=== PATIENT | female | born 2000 | race Caucasian/White ===

== ENCOUNTER 2022-11-30 23:15 | Emergency (ER) | payer MEDICAID ==
[~2022-11-30] VITALS: Ht 157.5 cm; Wt 80.1 kg
[2022-11-30 23:20] VITALS: BP 145/91; O2SAT 99
[2022-11-30 23:44] LABS: BASOPHILS % 0.7 % (0.0-2.0); EOSINOPHILS % 0.8 % (0.0-5.0); HEMATOCRIT. 39.8 % (36.0-48.0); HEMOGLOBIN. 13.2 g/dL (12.0-16.0); MEAN CORPUSCULAR HEMOGLOBIN 27.2 pg (28.0-32.0); MEAN PLATELET VOLUME 8.4 fl (7.4-10.4); MONOCYTES % 8.9 % (2.0-8.0); NEUTROPHILS % 61.6 % (40.0-76.0); PLATELET 359 x1000/uL (130-400); RED BLOOD CELL COUNT 4.85 mill/uL (4.2-5.4)
[2022-11-30 23:58] LABS: CHLORIDE 104 mEq/L (98-107)
[2022-12-01 04:25] VITALS: PULSE 79; RESP 14; TEMP 98.9
== END 2022-12-01 04:26 | disposition home or self-care (01) ==
LOC: ER 23:15
DX: K62.5 Hemorrhage of anus and rectum (principal); E11.9 Type 2 diabetes mellitus without complications
CPT/HCPCS: 36415; 80053; 85025; 99283

== ENCOUNTER 2023-12-26 21:31 | Emergency (ER) | payer SELFPAY ==
[~2023-12-26] VITALS: Ht 157.5 cm; Wt 81.0 kg
[2023-12-26 21:41] VITALS: O2SAT 100
[2023-12-26 23:20] LABS: BASOPHILS % 0.7 % (0.0-2.0); EOSINOPHILS % 1.7 % (0.0-5.0); HEMOGLOBIN. 12.6 g/dL (12.0-16.0); LYMPHOCYTES % 34.6 % (20.0-50.0); MEAN CORPUSCULAR HEMOGLOBIN 27.4 pg (28.0-32.0); MEAN CORPUSCULAR HGB CONC 33.2 g/dL (31.0-37.0); MEAN CORPUSCULAR VOLUME 82.4 fL (81.0-99.0); MEAN PLATELET VOLUME 8.6 fl (7.4-10.4); MONOCYTES % 9.4 % (2.0-8.0); NEUTROPHILS % 53.6 % (40.0-76.0); PLATELET 357 x1000/uL (130-400); RED BLOOD CELL COUNT 4.61 mill/uL (4.2-5.4); WHITE BLOOD COUNT 9.9 x1000/uL (4.5-11.0)
[2023-12-26 23:24] LABS: CHLORIDE 102 mEq/L (98-107); POTASSIUM 3.9 mEq/L (3.5-5.1); SODIUM 136 mEq/L (136-145)
[2023-12-26 23:25] LABS: CALCIUM 10.2 mg/dL (8.7-10.4); CARBON DIOXIDE 28 mEq/L (21-32)
[2023-12-26 23:30] LABS: CREATININE 1.1 mg/dL (0.6-1.0); GLUCOSE 266 mg/dL (70-105); UREA NITROGEN BLOOD 9 mg/dL (9-23)
[2023-12-26] MEDS: FAMOTIDINE 20MG/2ML VIAL IV ONE (23:30)
[2023-12-26] MEDS: LACTATED RINGERS 1,000 ML IV ONE (23:30)
[2023-12-26 23:32] LABS: ALANINE AMINOTRANSFERASE 36 IU/L (10-49); ALBUMIN 4.9 g/dL (3.2-4.8); ASPARTATE AMINOTRANSFERASE 18 IU/L (<34); BILIRUBIN TOTAL 0.3 mg/dL (0.1-1.0); PROTEIN TOTAL 8.3 g/dL (6.0-8.3)
[2023-12-26 23:48] LABS: THYROID STIMULATING HORMONE 1.74 uIU/mL (0.55-4.78)
[2023-12-26 23:49] LABS: BILIRUBIN DIRECT < 0.1 mg/dL (<=3.0)
[2023-12-26 23:52] LABS: BETA HYDROXYBUTYRATE < 0.1 mMol/L (0.0-0.3)
[2023-12-27] MEDS: FAMOTIDINE 20MG/2ML VIAL IV NR (01:20)
[2023-12-27 01:31] LABS: BG CARBOXYHEMOGLOBIN 0.3 % (0.5-1.5); BG DEOXYHEMOGLOBIN 2.8 % (0.0-5.0); BG FRACTION INSPIRED OXYGEN 21; BG HCO3 ACT 21.6 mmol/L (22.0-26.0); BG METHEMOGLOBIN 0.2 % (0.0-1.5); BG OXYGEN SATURATION 97.2 % (92.0-98.5); BG OXYHEMOGLOBIN 96.7 % (94.0-97.0); BG PH 7.433 (7.350-7.450); BG PO2 90.8 mmHg (75.0-100.0); BG SAMPLE SITE RIGHT RADIAL; BG TOTAL HEMOGLOBIN 12.4 g/dL (12.0-18.0); BG VENT MODE ROOM AIR
[2023-12-27 02:08] LABS: CLARITY URINE CLEAR (CLEAR); COLOR URINE YELLOW (YELLOW); GLUCOSE URINE 3+ (NEGATIVE); KETONES URINE NEGATIVE (NEGATIVE); LEUKOCYTE ESTERASE URINE NEGATIVE (NEGATIVE); NITRITE URINE NEGATIVE (NEGATIVE); OCCULT BLOOD URINE NEGATIVE (NEGATIVE); PROTEIN URINE NEGATIVE (NEGATIVE); SPECIFIC GRAVITY URINE 1.025 (1.005-1.030); UROBILINOGEN URINE 0.2 E.U./dL (0.2-1.0)
[2023-12-27] MEDS ORDERED: INSU100V36 SQ (02:47)
[2023-12-27] MEDS ORDERED: DULA0.75 SQ (02:49)
[2023-12-27] MEDS ORDERED: MAG355OR21 MT (02:50)
[2023-12-27] MEDS ORDERED: FAMO-135 PO (02:50)
[2023-12-27] MEDS ORDERED: INSHUMSS SUBCUT (02:55)
[2023-12-27 03:01] LABS: RBC URINE 0-2 /hpf (0-2); WBC URINE 0-2 /hpf (0-2)
[2023-12-27 03:02] LABS: SQUAMOUS EPITHELIAL CELL URINE FEW /lpf (RARE/1+)
[2023-12-27 03:03] LABS: BACTERIA URINE NONE SEEN
[2023-12-27 03:10] VITALS: BP 116/88; PULSE 87; RESP 16; TEMP 97.9
== END 2023-12-27 03:10 | disposition home or self-care (01) ==
LOC: ER 21:31
DX: K29.70 Gastritis, unspecified, without bleeding (principal); E11.65 Type 2 diabetes mellitus with hyperglycemia
CPT/HCPCS: 80076; 80048; 81025; 82010; 82962; 83690; 83930; 84443; 85025; 36415; 71046; 96361; 99284; 81003; 82805; 82375; 96374; 36600; J7120; J3490; Z7610

== ENCOUNTER 2024-05-13 00:50 | Emergency (ER) | payer MEDICAID ==
[~2024-05-13] VITALS: Ht 157.5 cm; Wt 77.4 kg
[~2024-05-13 00:50] MED LIST: DULA0.75 SQ; FAMO-135 PO; INSHUMSS SUBCUT; INSU100V36 SQ; MAG355OR21 MT
[2024-05-13 01:02] VITALS: PULSE 100; RESP 16; O2SAT 99
[2024-05-13 01:39] VITALS: BP 132/92; TEMP 98.2; O2SAT 100
[2024-05-13 03:06] LABS: BASOPHILS % 0.6 % (0.0-2.0); EOSINOPHILS % 0.8 % (0.0-5.0); HEMATOCRIT. 38.3 % (36.0-48.0); HEMOGLOBIN. 12.7 g/dL (12.0-16.0); LYMPHOCYTES % 23.7 % (20.0-50.0); MEAN CORPUSCULAR HEMOGLOBIN 27.6 pg (28.0-32.0); MEAN CORPUSCULAR HGB CONC 33.1 g/dL (31.0-37.0); MEAN CORPUSCULAR VOLUME 83.3 fL (81.0-99.0); MEAN PLATELET VOLUME 9.4 fl (7.4-10.4); MONOCYTES % 9.1 % (2.0-8.0); NEUTROPHILS % 65.8 % (40.0-76.0); PLATELET 386 x1000/uL (130-400); WHITE BLOOD COUNT 10.4 x1000/uL (4.5-11.0)
[2024-05-13 03:08] LABS: POTASSIUM 3.8 mEq/L (3.5-5.1)
[2024-05-13 03:10] LABS: CLARITY URINE CLEAR (CLEAR); COLOR URINE RED (YELLOW); GLUCOSE URINE 3+ (NEGATIVE); KETONES URINE NEGATIVE (NEGATIVE); LEUKOCYTE ESTERASE URINE TRACE (NEGATIVE); NITRITE URINE NEGATIVE (NEGATIVE); OCCULT BLOOD URINE 3+ (NEGATIVE); PH URINE 5.5 (4.5-8.0); PROTEIN URINE 1+ (NEGATIVE); SPECIFIC GRAVITY URINE 1.015 (1.005-1.030); UROBILINOGEN URINE 0.2 E.U./dL (0.2-1.0)
[2024-05-13 03:10] LABS: CALCIUM 10.1 mg/dL (8.7-10.4)
[2024-05-13 03:14] LABS: CREATININE 1.2 mg/dL (0.6-1.0)
[2024-05-13 03:30] LABS: HCG SCREEN NEGATIVE
[2024-05-13 05:49] LABS: RBC URINE TNTC /hpf (0-2); SQUAMOUS EPITHELIAL CELL URINE 1+ /lpf (RARE/1+)
[2024-05-13 05:51] LABS: BACTERIA URINE NONE SEEN; WBC URINE 0-2 /hpf (0-2)
[2024-05-13] MEDS: KETOROLAC 30MG/ML VIAL IM NR (06:00)
[2024-05-13] MEDS: KETOROLAC 30MG/ML VIAL IM ONE (06:04)
== END 2024-05-13 06:04 | disposition home or self-care (01) ==
LOC: ER 01:40
DX: N93.9 Abnormal uterine and vaginal bleeding, unspecified (principal)
CPT/HCPCS: 80048; 81003; 82962; 84703; 85025; 86850; 86900; 86901; 36415; 76830; 76856; 96372; 99285; J1885; Z7610